=== PATIENT | female | born 1935 | race Caucasian/White ===

== ENCOUNTER → 2019-10-23 | Outpatient (CLI) | payer OTHER | LOC: SJCVC 11:32 | PROVIDERS: ATTEND Internal Medicine | DX: I44.0 Atrioventricular block, first degree (principal); I44.7 Left bundle-branch block, unspecified; R00.1 Bradycardia, unspecified; I10 Essential (primary) hypertension; E78.5 Hyperlipidemia, unspecified; K21.9 Gastro-esophageal reflux disease without esophagitis; G31.84 Mild cognitive impairment of uncertain or unknown etiology; E78.00 Pure hypercholesterolemia, unspecified; Z82.49 Family history of ischemic heart disease and other diseases of the circulatory system; Z79.899 Other long term (current) drug therapy ==

== ENCOUNTER 2020-01-27 16:40 | Inpatient (IN) | payer OTHER ==
[~2020-01-27] VITALS: Ht 162.6 cm; Wt 80.3 kg
[2020-01-27 16:49] VITALS: BP 160/66
[2020-01-27] MEDS ORDERED: ATENOLOL 100MG100 MG PO (16:58)
[2020-01-27 18:35] LABS: ABSOLUTE NEUTROPHILS 5.6 thou/uL (1.4-8.2); BASOPHILS 0.9 % (0.0-2.0); EOSINOPHILS 1.1 % (0.0-3.0); HEMATOCRIT 41.6 % (37.0-47.0); HEMOGLOBIN 14.3 gm/dL (12.0-15.0); LYMPHOCYTES 18.6 % (24.0-44.0); MCH 31.8 pg (26.0-34.0); MCHC 34.3 g/dL (28.0-37.0); MCV 92.8 fL (80.0-100.0); MONOCYTES 8.2 % (1.0-8.0); PLATELET COUNT 283 thou/uL (150-400); POLYS 71.2 % (36.0-66.0); RBC 4.49 mil/uL (4.20-5.00); RDW 12.7 % (10.5-14.5); WBC 7.9 thou/uL (4.0-11.0)
[2020-01-27 18:41] LABS: CALCIUM 9.4 mg/dL (8.5-10.1); POTASSIUM 3.8 mmol/L (3.5-5.1)
[2020-01-27 18:47] LABS: ALBUMIN 3.6 g/dL (3.4-5.0); TOTAL BILIRUBIN 0.4 mg/dL (0.2-1.0); TOTAL PROTEIN 7.3 g/dL (6.4-8.2)
[2020-01-27 21:58] VITALS: BP 160/66
[2020-01-27 22:05] VITALS: BP 124/74
[2020-01-27 22:27] VITALS: BP 157/81
[2020-01-28 00:14] VITALS: BP 142/58
--- NOTE | 2020-01-28 02:37 | NUR ---
PATIENT TRANSFERRED FROM ED TO FLOOR AT APPROXIMATELY 2220. ADMISSION HX/ASSESSMENT COMPLETED. NO SIGNS OF DISTRESS OBSERVED. OXYGEN SAT 95% ON ROOM AIR. PATIENT DENIES PAIN. NPO AT MIDNIGHT.
[2020-01-28 03:12] LABS: CHOLESTEROL 185 mg/dL (<200); HDL CHOLESTEROL 55 mg/dL (>40); LDL CHOLESTEROL 112 mg/dL (<100); TC:HDL 3.4 Ratio (Not establshd); TRIGLYCERIDE 90 mg/dL (<150); TROPONIN-I <0.06 ng/mL (<0.06); VLDL 18 mg/dL (<40)
[2020-01-28 03:17] LABS: SERUM ASSESSMENT Clear
[2020-01-28 05:51] VITALS: BP 150/62
[2020-01-28 07:40] VITALS: BP 167/78
[2020-01-28 08:43] LABS: ANION GAP 10 mmol/L (7-16); BUN 16 mg/dL (7-18); CALCIUM 9.2 mg/dL (8.5-10.1); CHLORIDE 104 mmol/L (98-107); CO2 26 mmol/L (21-32); GLUCOSE 104 mg/dL (74-106); POTASSIUM 3.7 mmol/L (3.5-5.1); SODIUM 140 mmol/L (136-145); TROPONIN-I <0.06 ng/mL (<0.06)
--- NOTE | 2020-01-28 08:55 | EKG ---
[facility] [place] [address] ELECTROCARDIOGRAM REPORT Name: JAMEY SORIANO Room #: 205-P ADM IN M.R.#: [id number] Admission: 01/27/20 Attend Phys: Omar Love MD Discharge: Date of : 35 Report #: [id number] THIS REPORT FOR: cc: Leonor Orozco MD, Julie E. MD Lundgren,Alan Donovan MD [facility] ~ THIS REPORT FOR: //name// [facility] ED Test Date: 2020-01-27 Test Time: 19:42:50 Pat Name: JAMEY SORIANO Department: Room: [facility] Gender: F [employer] [place]: Sonia : 1935 Requested By: Rubia Jerez Order Number: [id number] MD: Alan Crespo Measurements Intervals [place] Rate: 80 P: 73 MD: 235 QRS: 60 QRSD: 108 T: 106 QT: 444 QTc: 513 Interpretive Statements Sinus rhythm Prolonged MD interval Probable left atrial enlargement Low voltage, extremity leads Left ventricular hypertrophy Abnrm T, probable ischemia, anterolateral lds Prolonged QT interval No previous ECG available for comparison Electronically Signed On 01-28-2020 8:55:18 CDT by Alan Crespo [email or web address] <ELECTRONICALLY SIGNED> By: Alan Crespo MD, FACC 01/28/20854 41 41 Alan Crespo MD, FACC /EPI
[2020-01-28 11:15] VITALS: BP 134/79
--- NOTE | 2020-01-28 12:12 | NUR ---
ATTEMPTED OT EVAL AT 1136, PT. REPORTS SHE IS INDEP. AT BASELINE AND HAS NOT CHANGED SINCE ADMISSION. PT. REFUSES OT EVALUATION, STATING SHE DOES NOT FEEL IT IS NECESSARY. OT EDUCATED PT. THAT SHE CAN REQUEST NEW ORDERS VIA HER NURSE OR PROVIDER IF SHE WISHES. ACUTE OT SIGNING OFF.
--- NOTE | 2020-01-28 12:12 | NUR ---
Chart reviewed and case discussed with the care team. Platform Attendant visited with the pt at bedside. She indicates that she is from [place], [place] and lives there with her spouse Leon. He will be in later today. Their dtr Erica Hollins lives in [place]. She does not have either of their cell numbers but will have Leon note them on the white board in her room during his visit. She reports being indep, active and driving prior to admission. She has had increased sob and weakness over the past 10 days which precipitated outpt cardiac workup. She does not use any dme and had hh /outpt therapy a few years ago after a knee replacement and back surgery. She is covid neg. She does not anticipate any dc planning needs and was seen by the CHF educator/cardiac rehab liason this morning. Cm role introduced should dc needs arise. Cardiac cath planned for tomorrow morning.
--- NOTE | 2020-01-28 12:55 | NUR ---
ORDERS RECEIVED FOR P.T. EVAL AND TREAT. CHART REVIEWED. WHEN P.T. ENTERED ROOM, Pt WAS SITTING ON EOB. Pt STATES THAT SHE IS FEELING MUCH BETTER AND HAS BEEN UP WALKING ON HER OWN (AD CAROL) WITH NO DIFFICULTIES AT ALL (NO WEAKNESS/ BALANCE DEFICITS). Pt STATES THAT SHE DOES NOT NEED P.T. AND REFUSED EVAL. INFORMED Pt'S NURSE, BEAU, AND WILL D/C P.T. AT THIS TIME.
[2020-01-28 17:00] VITALS: BP 138/65
--- NOTE | 2020-01-28 17:22 | NUR ---
RECEIVED PT'S CARE AROUND 0735; PT. ON BED; RESTING WITH EYES CLOSED; EQUAL CHEST RISING NOTICED; SR ON THE MONITOR; DURING AM ASSESSMENT PT. AOX4; NO C/O PAIN; ABLE TO AMBULATE WITHOUT ASSISTANCE; EDUCATED ABOUT FALL PRECAUTIONS; ST. UNDERSTANDING; AM MEDICATION GIVEN; REQUESTED TO CALL ; NOT WORKING FROM ROOM TELEPHONE; ABLE TO CONTACT FROM NURSE STATION & TRANSFER TO ROOM; UPDATED ABOUT POC; NPO AT MIDNIGHT; ST. UNDERSTANDING; MONITORING; ASSESSMENT CHARGED; FOLLOWING POC; WILL PASS ON REPORT;
[2020-01-28 19:58] VITALS: BP 132/64
[2020-01-29] VITALS (9 sets, daily range): BP systolic 133–159; BP diastolic 61–70
[2020-01-29 02:06] LABS: GLYCOHEMOGLOBIN (HGB A1C) 5.2 % (4.8-5.6)
--- NOTE | 2020-01-29 04:12 | NUR ---
ASSUMED CARE OF PATIENT AT 1900. PATIENT DENIES SOA/PAIN AT ASSESSMENT. PATIENT ON ROOM AIR WITH OXYGEN SATS IN MID 90s. PATIENT NPO AFTER MIDNIGHT IN ANTICIPATION OF HEARTH CATH TODAY.
[2020-01-29 05:40] LABS: HEMATOCRIT 41.3 % (37.0-47.0); HEMOGLOBIN 13.9 gm/dL (12.0-15.0); MCH 31.6 pg (26.0-34.0); MCHC 33.8 g/dL (28.0-37.0); MCV 93.7 fL (80.0-100.0); RBC 4.4 mil/uL (4.20-5.00); RDW 13.1 % (10.5-14.5); WBC 7.1 thou/uL (4.0-11.0)
[2020-01-29 06:18] LABS: CALCIUM 9.6 mg/dL (8.5-10.1); CREATININE 1.1 mg/dL (0.6-1.0); POTASSIUM 3.9 mmol/L (3.5-5.1)
--- NOTE | 2020-01-29 09:27 | CATHLAB ---
[facility] [place] [address] INVASIVE PROCEDURE REPORT Name: JAMEY SORIANO Room #: 205-P ADM IN M.R.#: [id number] Admission: 01/27/20 Attend Phys: Jg Jalloh MD Discharge: Date of : 35 Report #: [id number] THIS REPORT FOR: cc: Leonor Orozco MD, Julie E. MD Lundgren, Craig H. MD [facility] ~ APPROVED REPORT Study performed: 01/29/2020 07:53:27 Patient Details Patient Status: In-Patient Room #: The patient is a 84 year-old female Event Personnel Alan Crespo Broadcast Engineer, Marielle Fuentes RN RN, Maira Agee RN RN, Grey Milan RTJamie Marmolejo, Aleta Monroe Monitor Procedures Performed Art Access - R femoral artery* [place] Access - R femoral vein Right and Left Heart Cath w/or w/o Coronarie [id number] [facility] Hemostasis with Manual pressure Hemostasis w/ Mynx Indication Chest pain Procedure Narrative The patient was brought electively to the Cardiac Catheterization Laboratory and was prepped and draped in a sterile manner. The Right Groin^ was infiltrated with subcutaneous anesthesia. A PINNACLE 6FR Sheath #[id number] sheath was inserted into the RFA 6F^. Coronary angiography was performed using coronary diagnostic catheters. The right coronary system was accessed and visualized with a JR4 catheter. The left coronary system was accessed and visualized with a JL4 catheter. The left ventricle was accessed and visualized with a ANGLE PIG catheter. Left ventriculogram was performed in 30 degree projection. Hemostasis was obtained with manual pressure following sheath removal without any complications. There was no hematoma. MANUAL PRESSURE WAS USED FOR VENOUS LINES. Intraoperative Conscious Sedation Sedation start time: 813 Case end Time: [address] [facility] [place] [place] [address] INVASIVE PROCEDURE REPORT Name: CHRISTIEJAMEY Room #: 205-[facility] IN [facility].#: [id number] Admission: 01/27/20 Attend Phys: Jg Jalloh MD Discharge: Date of : 35 Report #: [id number] Fentanyl 50 mcg Versed 1 mg Fluoro Time: 3.30 minutes Dose: DAP 5149.00 cGycm2 640 mGy Contrast Type and Amount: Omnipaque 145 ml Coronary Angiography The patient's coronary anatomy is right dominant. Diagnostic Cath Left Main Normal left main LAD Mild proximal LAD plaquing, otherwise normal LAD Diagonal 1 Large bifurcating diagonal branch, angiographically normal Circumflex Large nondominant circumflex comprised of a single marginal branch OM1 Normal OM1 Right Coronary Dominant right coronary, angiographically normal R PDA Large, normal posterior descending RPLV Moderate size posterior lateral branch, normal Left Ventriculography The left ventricle is normal in size with normal contractility. The left ventricular ejection fraction is estimated to be 55-60%. Left ventricular wall motion abnormalities are not present. There is 2-3+ mitral insufficiency. Hemodynamics The right atrial mean pressure is 10 mmHg. The right ventricular pressure is 39/6 mmHg. The pulmonary artery pressure is 41/19 mmHg with a mean of 28 mmHg. The mean pulmonary capillary wedge pressure is 22 mmHg. The aortic pressure is 172/64 mmHg with a mean of 106 mmHg. The left ventricular pressure is 172/12 mmHg with a mean of mmHg. The left ventricular end diastolic pressure is 22 mmHg. The cardiac output using thermo method is 4.53 L/min. The cardiac index using thermo method is 2.44 L/min/m2. PCI Technique 1. Mildly elevated right heart pressures. 2. Normal left ventricular systolic function. EF 55-60%. Probably moderate mitral insufficiency 3. Normal left main [facility] [address] [place] [address] INVASIVE PROCEDURE REPORT Name: JAMEY SORIANO Room #: 205-P [facility] IN .R.#: [id number] Admission: 01/27/20 Attend Phys: Jg Jalloh MD Discharge: Date of : 35 Report #: [id number] 4. Mild proximal LAD plaquing, otherwise normal 5. Normal circumflex and dominant right coronary <ELECTRONICALLY SIGNED> By: Alna Crespo MD, FACC 01/29/20926 6 09 Alan Crespo MD, FACC /INF
[2020-01-30 03:26] VITALS: BP 149/59
[2020-01-30 05:16] LABS: HEMATOCRIT 38.9 % (37.0-47.0); MCH 31.6 pg (26.0-34.0); MCHC 33.4 g/dL (28.0-37.0); MCV 94.6 fL (80.0-100.0); RBC 4.11 mil/uL (4.20-5.00); RDW 13.2 % (10.5-14.5); WBC 7.4 thou/uL (4.0-11.0)
[2020-01-30 05:29] LABS: CALCIUM 9.2 mg/dL (8.5-10.1); POTASSIUM 3.6 mmol/L (3.5-5.1)
[2020-01-30] MEDS ORDERED: DEMADEX20 MG PO (07:30)
[2020-01-30] MEDS ORDERED: K-DUR 20 MEQ T20 MEQ PO (07:30)
[2020-01-30] MEDS ORDERED: BENICAR20 MG PO (07:30)
[2020-01-30 08:04] VITALS: BP 143/83
[2020-01-30 09:35] VITALS: BP 143/83
--- NOTE | 2020-01-30 10:29 | NUR ---
DR COSBY AND MACY HERE THIS AM AND DISCHARGE ORDERS RECIEVED. DISCUSSED DISCHARGE INSTRUCTIONS WITH PT AND SHE VERBALIZED UNDERSTANDING. WILL DISCHARGE TO HOME WHEN RIDE/ ARRIVES.
== END 2020-01-30 13:24 | disposition home or self-care (01) | DRG 286 ==
LOC: ER 16:40 → 2N 21:45 → EROBS 21:45 → 2N 22:05
PROVIDERS: Internal Medicine; Nurse Practitioner Family; Physician Assistant; ADMIT Hospitalist; ATTEND Hospitalist
PROC: 4A023N8 Measurement of Cardiac Sampling and Pressure, Bilateral, Percutaneous Approach (ICD-10-PCS; principal; 2020-01-29)
PROC: B2151ZZ Fluoroscopy of Left Heart using Low Osmolar Contrast (ICD-10-PCS; principal; 2020-01-29)
PROC: B2111ZZ Fluoroscopy of Multiple Coronary Arteries using Low Osmolar Contrast (ICD-10-PCS; principal; 2020-01-29)
DX: I11.0 Hypertensive heart disease with heart failure (principal); I50.31 Acute diastolic (congestive) heart failure; J96.01 Acute respiratory failure with hypoxia; I25.10 Atherosclerotic heart disease of native coronary artery without angina pectoris; R19.00 Intra-abdominal and pelvic swelling, mass and lump, unspecified site; I34.0 Nonrheumatic mitral (valve) insufficiency; G47.00 Insomnia, unspecified; Z96.653 Presence of artificial knee joint, bilateral; Z96.698 Presence of other orthopedic joint implants; K76.89 Other specified diseases of liver; I27.20 Pulmonary hypertension, unspecified; M81.0 Age-related osteoporosis without current pathological fracture; K59.00 Constipation, unspecified; I45.10 Unspecified right bundle-branch block; M47.9 Spondylosis, unspecified; M79.7 Fibromyalgia; R59.9 Enlarged lymph nodes, unspecified; Z20.828 Contact with and (suspected) exposure to other viral communicable diseases; Z86.73 Personal history of transient ischemic attack (TIA), and cerebral infarction without residual deficits; Z90.710 Acquired absence of both cervix and uterus; Z98.49 Cataract extraction status, unspecified eye; Z82.49 Family history of ischemic heart disease and other diseases of the circulatory system
CPT/HCPCS: 10081

== ENCOUNTER → 2020-01-27 | Outpatient (CLI) | payer OTHER ==
[~2020-01-27] MED LIST: ATENOLOL 100MG100 MG PO
== END ==
LOC: RAD 14:57
PROVIDERS: ATTEND Internal Medicine
DX: J90 Pleural effusion, not elsewhere classified (principal); J84.10 Pulmonary fibrosis, unspecified

== ENCOUNTER → 2020-01-27 | Outpatient (CLI) | payer OTHER ==
[~2020-01-27] MED LIST changes: +BENICAR20 MG PO; +DEMADEX20 MG PO; +K-DUR 20 MEQ T20 MEQ PO
== END | disposition home or self-care (01) ==
LOC: SJCVCIMAG 12:02
PROVIDERS: ATTEND Internal Medicine
DX: R06.00 Dyspnea, unspecified (principal); R00.2 Palpitations; I08.3 Combined rheumatic disorders of mitral, aortic and tricuspid valves; I25.10 Atherosclerotic heart disease of native coronary artery without angina pectoris; Z98.890 Other specified postprocedural states; Z79.899 Other long term (current) drug therapy

== ENCOUNTER → 2020-03-08 | Outpatient (CLI) | payer OTHER | LOC: SJCVCIMAG 09:08 | PROVIDERS: ATTEND Internal Medicine | DX: I08.1 Rheumatic disorders of both mitral and tricuspid valves (principal); R94.31 Abnormal electrocardiogram [ECG] [EKG]; R00.1 Bradycardia, unspecified; I44.0 Atrioventricular block, first degree; I11.0 Hypertensive heart disease with heart failure; I50.32 Chronic diastolic (congestive) heart failure; R19.00 Intra-abdominal and pelvic swelling, mass and lump, unspecified site; E78.00 Pure hypercholesterolemia, unspecified; Z79.899 Other long term (current) drug therapy ==

== ENCOUNTER → 2020-09-09 | Outpatient (CLI) | payer OTHER | LOC: SJCVC 09:53 | PROVIDERS: ATTEND Internal Medicine | DX: I44.0 Atrioventricular block, first degree (principal); R00.1 Bradycardia, unspecified; I34.0 Nonrheumatic mitral (valve) insufficiency; I11.0 Hypertensive heart disease with heart failure; I50.32 Chronic diastolic (congestive) heart failure; R19.00 Intra-abdominal and pelvic swelling, mass and lump, unspecified site; E78.00 Pure hypercholesterolemia, unspecified; R06.02 Shortness of breath; E78.5 Hyperlipidemia, unspecified; K21.9 Gastro-esophageal reflux disease without esophagitis; Z90.710 Acquired absence of both cervix and uterus; Z88.8 Allergy status to other drugs, medicaments and biological substances; Z79.899 Other long term (current) drug therapy; Z82.49 Family history of ischemic heart disease and other diseases of the circulatory system ==

== ENCOUNTER → 2021-03-15 | Outpatient (CLI) | payer OTHER | LOC: SJCVC 10:36 | PROVIDERS: ATTEND Internal Medicine | DX: E78.5 Hyperlipidemia, unspecified (principal); I34.0 Nonrheumatic mitral (valve) insufficiency; I50.32 Chronic diastolic (congestive) heart failure; D36.10 Benign neoplasm of peripheral nerves and autonomic nervous system, unspecified; I10 Essential (primary) hypertension; K21.9 Gastro-esophageal reflux disease without esophagitis; E78.00 Pure hypercholesterolemia, unspecified; R42 Dizziness and giddiness; Z82.49 Family history of ischemic heart disease and other diseases of the circulatory system; Z72.89 Other problems related to lifestyle; Z88.8 Allergy status to other drugs, medicaments and biological substances; Z79.899 Other long term (current) drug therapy; R94.31 Abnormal electrocardiogram [ECG] [EKG] ==

== ENCOUNTER → 2021-04-26 | Outpatient (CLI) | payer OTHER | LOC: SJCVC 10:35 | PROVIDERS: ATTEND Internal Medicine | DX: R94.31 Abnormal electrocardiogram [ECG] [EKG] (principal); I44.0 Atrioventricular block, first degree; I34.0 Nonrheumatic mitral (valve) insufficiency; I50.32 Chronic diastolic (congestive) heart failure; I11.0 Hypertensive heart disease with heart failure; D36.10 Benign neoplasm of peripheral nerves and autonomic nervous system, unspecified; E78.5 Hyperlipidemia, unspecified; K21.9 Gastro-esophageal reflux disease without esophagitis; E78.00 Pure hypercholesterolemia, unspecified; I10 Essential (primary) hypertension; Z72.89 Other problems related to lifestyle; Z88.8 Allergy status to other drugs, medicaments and biological substances; Z79.899 Other long term (current) drug therapy; Z82.49 Family history of ischemic heart disease and other diseases of the circulatory system ==